=== PATIENT | male | born 1945 | race American Indian/Alaskan Native ===

== ENCOUNTER → 2021-03-08 | Outpatient (CLI) | payer MEDICARE ==
[~2021-03-08] MED LIST: OMEP20ER PO; PHENA100 PO; SULTRIDS PO; TAMS.4ER PO
[2021-03-08 12:06] LABS: Appearance, Urine Clear (Clear); Bilirubin, Urine Neg (Neg); Blood, Urine 2+ (Neg); Color, Urine Yellow (P-Yellow); Glucose Qualitative, Urine 3+ (Neg); Ketones, Urine Neg (Neg); Leukocyte Esterase, Urine Neg (Neg); Nitrite, Urine Neg (Neg); Protein, Urine 3+ (Neg); Specific Gravity, Urine 1.015 (1.003-1.022); Urobilinogen, Urine NORM (Normal)
[2021-03-08 12:37] LABS: Red Blood Cells, Urine 0-2 /hpf (0-2); Squamous Epithelial Cells Few /hpf (Few); White Blood Cells, Urine 0-2 /hpf (0-5)
[2021-03-08 12:38] LABS: Bacteria Rare /hpf
== END | disposition home or self-care (01) ==
LOC: LAB SHORT 11:29
PROVIDERS: Surgery
DX: Z51.0 Encounter for antineoplastic radiation therapy (principal); C61 Malignant neoplasm of prostate
CPT/HCPCS: 81001

== ENCOUNTER → 2022-04-12 | Outpatient (CLI) | payer MEDICARE ==
[2022-04-12 09:40] LABS: Source, Urine Clean Catch
[2022-04-12 14:20] LABS: Bacteria Few /hpf; Red Blood Cells, Urine 0-2 /hpf (0-2); Squamous Epithelial Cells Rare /hpf (Few)
== END | disposition home or self-care (01) ==
LOC: LAB 08:00 → LAB SHORT 08:00
PROVIDERS: Urology
DX: N39.0 Urinary tract infection, site not specified (principal)
CPT/HCPCS: 81015; 87086

== ENCOUNTER → 2022-08-14 | Outpatient (CLI) | payer MEDICARE ==
[2022-08-14 10:52] LABS: Appearance, Urine Clear (Clear); Bilirubin, Urine Neg (Neg); Blood, Urine 2+ (Neg); Color, Urine Yellow (P-Yellow); Glucose Qualitative, Urine 1+ (Neg); Ketones, Urine Neg (Neg); Leukocyte Esterase, Urine Neg (Neg); Nitrite, Urine Neg (Neg); Protein, Urine 3+ (Neg); Urobilinogen, Urine NORM (Normal); pH, Urine 6.5 (5.0-8.0)
[2022-08-14 11:12] LABS: Bacteria Rare /hpf; Mucus Mod (0-Heavy); Squamous Epithelial Cells Rare /hpf (Few); White Blood Cells, Urine 0-2 /hpf (0-5)
== END | disposition home or self-care (01) ==
LOC: LAB 10:41 → LAB SHORT 10:41
PROVIDERS: Nurse Practitioner Family
DX: Z51.0 Encounter for antineoplastic radiation therapy (principal); C61 Malignant neoplasm of prostate
CPT/HCPCS: 81001

== ENCOUNTER 2023-04-25 19:05 | Emergency (ER) | payer MEDICARE ==
[~2023-04-25] VITALS: Ht 180.3 cm; Wt 97.5 kg
[2023-04-25] MEDS ORDERED: BENZ100A PO (20:58)
[2023-04-25 21:00] VITALS: BP 158/76
[2023-04-26] MEDS ORDERED: Tessalon200 MG PO (10:26)
== END 2023-04-25 21:00 | disposition home or self-care (01) ==
LOC: ER 19:05
DX: U07.1 COVID-19 (principal); J44.9 Chronic obstructive pulmonary disease, unspecified; Z79.2 Long term (current) use of antibiotics; Z79.899 Other long term (current) drug therapy
CPT/HCPCS: 71045; 99284-25; A9270

== ENCOUNTER 2023-05-07 16:36 | Inpatient (IN) | payer MEDICARE ==
[~2023-05-07] VITALS: Ht 177.8 cm; Wt 92.5 kg
[~2023-05-07 16:36] MED LIST changes: +BENZ100A PO; +Tessalon200 MG PO
[2023-05-07 17:09] LABS: BASOPHILS ABSOLUTE AUTO 0.05 K/mm3 (0.00-0.23); BASOPHILS PERCENT AUTO 1 % (0-2); EOSINOPHILS ABSOLUTE AUTO 0.17 K/mm3 (0.00-0.68); EOSINOPHILS PERCENT AUTO 2 % (0-6); Hematocrit 32.4 % (37.0-53.0); Hemoglobin 10.4 g/dL (13.5-17.5); IMMATURE GRAN ABSOLUTE AUTO 0.06 K/mm3 (0.00-0.10); IMMATURE GRAN PERCENT AUTO 1 % (0-1); LYMPHOCYTES ABSOLUTE AUTO 0.67 K/mm3 (0.84-5.20); LYMPHOCYTES PERCENT AUTO 8 % (21-46); MONOCYTES ABSOLUTE AUTO 0.66 K/mm3 (0.16-1.47); MONOCYTES PERCENT AUTO 8 % (4-13); Mean Corpuscular HGB 29.4 pg (26.0-34.0); Mean Corpuscular HGB Conc 32.1 g/dL (31.5-36.5); Mean Corpuscular Volume 92 fL (80-100); Mean Platelet Volume 9.3 fL (9.1-12.4); NEUTROPHILS ABSOLUTE AUTO 6.49 K/mm3 (1.96-9.15); NEUTROPHILS PERCENT AUTO 80 % (41-73); Platelet Count 281 K/mm3 (150-400); RDW Coefficient Variation 15.7 % (11.7-14.2); RDW Standard Deviation 51.8 fL (35.1-46.3); Red Blood Cell Count 3.54 M/mm3 (4.30-5.90)
[2023-05-07 17:31] LABS: Albumin, Blood 3.2 g/dL (3.4-5.0); Albumin/Globulin Ratio 0.8 (0.8-1.8); Bilirubin, Total 0.6 mg/dL (0.1-1.0); Bun/Creatinine Ratio 17.3 (12.0-20.0); Calcium, Blood 9.5 mg/dL (8.5-10.1); Creatinine, Blood 1.27 mg/dL (0.60-1.20); Globulin, Blood 3.8 g/dL (2.2-4.0); Potassium, Blood 3.7 mmol/L (3.5-5.5)
[2023-05-07] MEDS ORDERED: OLME20 PO (18:47)
[2023-05-07] MEDS ORDERED: GLIP5ER PO (18:47)
[2023-05-07] MEDS ORDERED: ROSU10TA PO (18:48)
[2023-05-07] MEDS ORDERED: PIOG15 PO (18:48)
--- NOTE | 2023-05-07 22:10 | NUR ---
NEW ADMIT. PATIENT ARRIVED TO ROOM 334 FROM THE ER VIA GURNEY. PATIENT SELF TRANSFERED TO HOSPITAL BED. PATIENT ARRIVED ON 4 L'S OXYGEN VIA NASAL CANNULA. PATIENT TO ROOM WITH INSULIN PEN-LOCKED IN DRAWER FOR PATIENTS ROOM 334.
[2023-05-07 22:17] VITALS: BP 191/72
[2023-05-08] VITALS (9 sets, daily range): BP systolic 144–206; BP diastolic 57–93
--- NOTE | 2023-05-08 00:43 | NUR ---
HOSPITALIST CONTACTED. HOSPITALIST CONTACTED FOR PATIENTS B/P OF 206/93 PULSE OF 91. DISCUSSED WITH THAT PATIENT HAS LABETOLOL 10MG Q4H FOR SBP >180 AND THE NEXT DOSE IS NOT DUE FOR ANOTHER HOUR. ORDERED FOR NORVASC 10MG NOW AND 10MG IV HYDRALAZINE Q4P FOR SBP >160.
[2023-05-08 05:50] LABS: Calcium, Blood 9.5 mg/dL (8.5-10.1); Creatinine, Blood 1.13 mg/dL (0.60-1.20); Potassium, Blood 3.9 mmol/L (3.5-5.5)
--- NOTE | 2023-05-08 06:08 | NUR ---
SHIFT SUMMARY. PATIENT IS AOX4. PATIENT IN WITH ACUTE RESPIRATORY FAILURE. PATIENT SATTING >93% ON 4 L'S O2 VIA NASAL CANNULA. PATIENTS DAILY WEIGHT DONE-101.1KG. PATIENT CALLS APPROPRIATELY AND IS ABLE TO MAKE HIS NEEDS KNOWN. PATIENTS BREATHING HAS IMPROVED SINCE COMING INTO THE ER-PATIENT IS ABLE TO HOLD CONVERSATION W/O SOB, PATIENT TO THE BATHROOM TO BRUSH TEETH W/O SOB ON O2. PATIENT IS AC BLOOD GLUCOSE. PATIENT HAS NO C/O CHEST PAIN/PRESSURE/TIGHTNESS. PATIENTS DENIES ANY PAIN. PATIENTS B/P HAS BEEN ELEVATED THIS SHIFT-MEDICATED PER EMAR AND PERAMETERS; SEE ORDERS/EMAR AND VITAL SIGNS. BED IS LOCKED IN THE LOWEST POSITION W/CALL LIGHT IN REACH.
--- NOTE | 2023-05-08 19:24 | NUR ---
SHIFT SUMMARY PATIENT ALERT AND INTERACTIVE. PATIENT INDEPENDENT IN THE ROOM. USING URINAL TO VOID SMALL AMOUNTS AT A TIME. PATIENT STATES BREATHING CONTINUES TO BE ABOUT THE SAME YESTERDAY. PATIENT HAS BILATERAL LOWER LEG EDEMA. PATIENT STATES THAT THIS IS NEW FOR HIM SINCE HE HAD COVID. PATIENT RECIEVED MULTIPLE DOSES OF LASIX WITH MINIMAL RESPONSE. PROVIDER NOTIFIED OF FINDINGS. ORDERS GIVEN FOR IV LASIX GTT. EDUCATION PROVIDED TO AND PATIENT RELATED TO SODIUM DIET, FLUID INTAKE AND DAILY WEIGHING. 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
[2023-05-09 04:27] VITALS: BP 134/62
[2023-05-09 05:42] LABS: BASOPHILS ABSOLUTE AUTO 0.04 K/mm3 (0.00-0.23); BASOPHILS PERCENT AUTO 0 % (0-2); EOSINOPHILS ABSOLUTE AUTO 0.15 K/mm3 (0.00-0.68); EOSINOPHILS PERCENT AUTO 2 % (0-6); Hematocrit 30.2 % (37.0-53.0); Hemoglobin 9.8 g/dL (13.5-17.5); IMMATURE GRAN ABSOLUTE AUTO 0.04 K/mm3 (0.00-0.10); IMMATURE GRAN PERCENT AUTO 0 % (0-1); LYMPHOCYTES ABSOLUTE AUTO 1.11 K/mm3 (0.84-5.20); LYMPHOCYTES PERCENT AUTO 12 % (21-46); MONOCYTES ABSOLUTE AUTO 0.93 K/mm3 (0.16-1.47); MONOCYTES PERCENT AUTO 10 % (4-13); Mean Corpuscular HGB 29.6 pg (26.0-34.0); Mean Corpuscular HGB Conc 32.5 g/dL (31.5-36.5); Mean Corpuscular Volume 91 fL (80-100); Mean Platelet Volume 9.9 fL (9.1-12.4); NEUTROPHILS ABSOLUTE AUTO 6.79 K/mm3 (1.96-9.15); NEUTROPHILS PERCENT AUTO 75 % (41-73); Platelet Count 257 K/mm3 (150-400); RDW Standard Deviation 52.7 fL (35.1-46.3); Red Blood Cell Count 3.31 M/mm3 (4.30-5.90); White Blood Cell Count 9.06 K/mm3 (4.00-11.30)
[2023-05-09 06:02] LABS: Bun/Creatinine Ratio 24.3 (12.0-20.0); Calcium, Blood 9.3 mg/dL (8.5-10.1); Creatinine, Blood 1.52 mg/dL (0.60-1.20); Potassium, Blood 4.3 mmol/L (3.5-5.5)
--- NOTE | 2023-05-09 06:06 | NUR ---
END OF SHIFT SUMMARY PT SLEPT WELL OVERNIGHT. VSS, AFEBRILE, PT ON 4L VIA NC. PT HAD SOME SOB WITH EXERTION, AND SCOOTING UP IN BED. PT CALM AND COOPERATIVE WITH CARE PROVIDED. FREQUENT SAFETY CHECKS COMPLETED DURING THE SHIFT. PT APPEARED TO BE BREATHING EASILY. PT INDEPENDENT WITH ADL's, USES URINAL AT BEDSIDE. PT CALLS APPROPRIATELY. PT ABLE TO MAKE NEEDS KNOWN, CALL LIGHT WITHIN REACH, WCTM.
[2023-05-09 08:04] VITALS: BP 156/60
[2023-05-09 15:47] VITALS: BP 159/59
[2023-05-09 16:30] LABS: Bun/Creatinine Ratio 22.8 (12.0-20.0); Calcium, Blood 9.5 mg/dL (8.5-10.1); Creatinine, Blood 1.67 mg/dL (0.60-1.20); Potassium, Blood 4.3 mmol/L (3.5-5.5)
--- NOTE | 2023-05-09 18:36 | NUR ---
SHIFT SUMMARY PATIENT ALERT AND ORIENTED. PATIENT INDEPENDENT IN THE ROOM. PATIENT CONTINUES TO HAVE SOB BUT STATES THAT IT HAS IMPROVED TODAY. PATIENT CONTINUES TO BE ON OXYGEN. SOB INCREASES WITH ACTIVITY. EDEMA IMPROVED THROUGHOUT SHIFT. STEVE HOSE APPLIED. DIURETICS CHANGED. PATIENT VOIDING MORE AND URINE COLOR PALE YELLOW. CONTINUE TO PROVIDE EDUCATION RELATED TO NEW DIAGNOSIS OF CHF AND FLUID RETENTION.
[2023-05-09 20:00] VITALS: BP 186/63
--- NOTE | 2023-05-10 04:07 | NUR ---
END OF SHIFT SUMMARY PT A&O x4, VSS, AFEBRILE, PT ON 4L VIA NC. PT CALM AND COOPERATIVE WITH CARE PROVIDED. PT SLEPT WELL THROUGHOUT THE NIGHT, NO EVENTS TO CHART. PT STATED THAT HE IS FEELING BETTER THAN ON FRIDAY EVENING. PT VOIDING WELL, SEVERAL TIMES DURING THIS SHIFT. URINE PALE/TRANSPARENT IN COLOR. PT INDEPENDENT IN ROOM WITH ADL's, ABLE TO MAKE NEEDS KNOWN. PT DENIED C/O PAIN/DISCOMFORT, NO C/O CHEST PAIN, SOME SOB WITH ACTIVITY. CALL LIGHT WITHIN REACH, WCTM.
[2023-05-10 04:57] VITALS: BP 177/66
[2023-05-10 04:59] VITALS: BP 176/56
[2023-05-10 05:06] LABS: BASOPHILS ABSOLUTE AUTO 0.03 K/mm3 (0.00-0.23); BASOPHILS PERCENT AUTO 0 % (0-2); EOSINOPHILS ABSOLUTE AUTO 0.29 K/mm3 (0.00-0.68); EOSINOPHILS PERCENT AUTO 4 % (0-6); Hematocrit 30.5 % (37.0-53.0); Hemoglobin 10.1 g/dL (13.5-17.5); IMMATURE GRAN ABSOLUTE AUTO 0.03 K/mm3 (0.00-0.10); IMMATURE GRAN PERCENT AUTO 0 % (0-1); LYMPHOCYTES PERCENT AUTO 11 % (21-46); MONOCYTES ABSOLUTE AUTO 0.92 K/mm3 (0.16-1.47); MONOCYTES PERCENT AUTO 12 % (4-13); Mean Corpuscular HGB 29.6 pg (26.0-34.0); Mean Corpuscular HGB Conc 33.1 g/dL (31.5-36.5); Mean Corpuscular Volume 89 fL (80-100); Mean Platelet Volume 9.5 fL (9.1-12.4); NEUTROPHILS ABSOLUTE AUTO 5.41 K/mm3 (1.96-9.15); NEUTROPHILS PERCENT AUTO 72 % (41-73); Platelet Count 227 K/mm3 (150-400); RDW Coefficient Variation 15.5 % (11.7-14.2); RDW Standard Deviation 50.3 fL (35.1-46.3); Red Blood Cell Count 3.41 M/mm3 (4.30-5.90); White Blood Cell Count 7.48 K/mm3 (4.00-11.30)
[2023-05-10 05:39] LABS: Albumin, Blood 2.8 g/dL (3.4-5.0); Albumin/Globulin Ratio 0.8 (0.8-1.8); Bilirubin, Total 0.5 mg/dL (0.1-1.0); Bun/Creatinine Ratio 23.6 (12.0-20.0); Calcium, Blood 9.7 mg/dL (8.5-10.1); Creatinine, Blood 1.61 mg/dL (0.60-1.20); Globulin, Blood 3.6 g/dL (2.2-4.0); Potassium, Blood 3.9 mmol/L (3.5-5.5); Total Protein, Blood 6.4 g/dL (6.4-8.2)
--- NOTE | 2023-05-10 07:35 | NUR ---
ASSUMED CARE: PT RESTING QUIETLY. NSR ON TELE. 4L O2 AT THIS TIME. NO ACUTE NEEDS OR CONCERNS.
[2023-05-10 07:47] VITALS: BP 189/65
--- NOTE | 2023-05-10 07:56 | NUR ---
PHYSICAL THERAPIST AT BEDSIDE
[2023-05-10 14:51] VITALS: BP 145/57
[2023-05-10 15:45] VITALS: BP 154/61
--- NOTE | 2023-05-10 18:20 | NUR ---
SHIFT SUMMARY: PT RECIEVED IV DIURETICS AND ORAL POTASSIUM TODAY. REMAINS ON 4L O2 VIA NC, SATTING MID 90S. POSSIBLE DC HOME TOMORROW. DENIES ACUTE NEEDS OR CONCERNS.
[2023-05-10 19:48] VITALS: BP 144/62
[2023-05-11 03:58] VITALS: BP 161/64
--- NOTE | 2023-05-11 05:09 | NUR ---
END OF SHIFT SUMMARY PT SLEPT ON AND OFF OVERNIGHT, NO EVENTS NOTED. PT BREATHING EASILY, DENIED SOB, NO CHEST PAIN. PT PLEASANT AND COOPERATIVE WITH CARE PROVIDED. PT STILL ON 4L VIA NC, OXYGEN SATURATION AT 96%. PT VOIDING USING URINAL, PALE YELLOW CLEAR IN COLOR. SWELLING TO LOWER EXTREMITIES IMPROVING, PT WORE STEVE HOSE OVERNIGHT. PT RECEIVING IV BUMEX BIDD. LUNG SOUNDS CTA, DIMINISHED AT BASES. PT A&O x4, ABLE TO MAKE NEEDS KNOWN, CALL LIGHT WITHIN REACH, WCTM.
[2023-05-11 06:38] LABS: Bun/Creatinine Ratio 25.2 (12.0-20.0); Calcium, Blood 10.4 mg/dL (8.5-10.1); Creatinine, Blood 1.63 mg/dL (0.60-1.20); Potassium, Blood 4.3 mmol/L (3.5-5.5)
[2023-05-11 07:18] VITALS: BP 159/62
[2023-05-11] MEDS ORDERED: METO50ER PO (13:20)
[2023-05-11] MEDS ORDERED: SPIR25 PO (13:21)
[2023-05-11] MEDS ORDERED: TAMS.4ER PO (13:21)
[2023-05-11] MEDS ORDERED: BUME2 PO (13:22)
[2023-05-11 14:58] VITALS: BP 120/55
--- NOTE | 2023-05-11 16:15 | NUR ---
PATIENT DISCHARGED TO HOME ACCOMPANIED BY HIS . TELEMETRY AND IV SALINE LOCK REMOVED WITHOUT INCIDENT. EDUCATED PT AND EXTENSIVELY ABOUT HEART FAILURE, PREVENTION, MEDICATIONS, DAILY WEIGHTS, HOME OXYGEN SAFETY, SXS OF EXACERBATION; BOTH VERBALIZED UNDERSTANDING. NEW MEDICATIONS FAXED TO [facility]. OFF UNIT VIA W/C AT 4029. NO PERSONAL BELONGINGS LEFT BEHIND IN ROOM.
== END 2023-05-11 15:56 | disposition home or self-care (01) | DRG 291 ==
LOC: ER 16:36 → MEDS 20:52 → ENPENDDIS 05-11 11:51 → MEDS 05-11 15:56
PROVIDERS: Family Medicine; Hospitalist; Nurse Practitioner Acute Care; Student in an Organized Health Care Education/Training Program; ADMIT Internal Medicine
DX: I13.0 Hypertensive heart and chronic kidney disease with heart failure and stage 1 through stage 4 chronic kidney disease, or unspecified chronic kidney disease (principal); I50.33 Acute on chronic diastolic (congestive) heart failure; J96.01 Acute respiratory failure with hypoxia; E87.3 Alkalosis; E78.5 Hyperlipidemia, unspecified; I25.10 Atherosclerotic heart disease of native coronary artery without angina pectoris; J44.9 Chronic obstructive pulmonary disease, unspecified; N18.30 Chronic kidney disease, stage 3 unspecified; E11.22 Type 2 diabetes mellitus with diabetic chronic kidney disease; N40.0 Benign prostatic hyperplasia without lower urinary tract symptoms; K21.9 Gastro-esophageal reflux disease without esophagitis; Z86.16 Personal history of COVID-19; Z79.899 Other long term (current) drug therapy
CPT/HCPCS: 36415; 71046; 80048; 80053; 82947; 83735; 83880; 84100; 84145; 84484; 85025; 85379; 85651; 86140; 93005; 93010; 93306; 94760; 94761; 96374; 96375; 97110; 97116; 97161; 99285-25; A9270; J0360; J1100; J1650; J1940

== ENCOUNTER 2025-02-06 03:21 | Inpatient (IN) | payer MEDICARE ==
[2025-02-06] VITALS (13 sets, daily range): BP systolic 143–194; BP diastolic 50–79
[~2025-02-06] VITALS: Ht 180.3 cm; Wt 96.3 kg
[~2025-02-06 03:21] MED LIST changes: +BUME2 PO; +GLIP5ER PO; +METO25ER PO; +OLME20 PO; +PIOG15 PO; +ROSUVASTATIN CA10 MG PO; +SPIR25 PO
[2025-02-06 03:46] LABS: BASOPHILS ABSOLUTE AUTO 0.04 K/mm3 (0.00-0.23); BASOPHILS PERCENT AUTO 0 % (0-2); EOSINOPHILS ABSOLUTE AUTO 0.14 K/mm3 (0.00-0.68); EOSINOPHILS PERCENT AUTO 2 % (0-6); Hematocrit 29.6 % (37.0-53.0); Hemoglobin 9.1 g/dL (13.5-17.5); IMMATURE GRAN ABSOLUTE AUTO 0.04 K/mm3 (0.00-0.10); IMMATURE GRAN PERCENT AUTO 0 % (0-1); LYMPHOCYTES ABSOLUTE AUTO 0.99 K/mm3 (0.84-5.20); LYMPHOCYTES PERCENT AUTO 11 % (21-46); MONOCYTES ABSOLUTE AUTO 0.90 K/mm3 (0.16-1.47); MONOCYTES PERCENT AUTO 10 % (4-13); Mean Corpuscular HGB Conc 30.7 g/dL (31.5-36.5); Mean Corpuscular Volume 91 fL (80-100); NEUTROPHILS ABSOLUTE AUTO 6.96 K/mm3 (1.96-9.15); NEUTROPHILS PERCENT AUTO 77 % (41-73); NRBC ABSOLUTE 0.00 K/mm3 (0.00-0.02); NRBC Auto 0.0 /100 WBC (0.0-0.2); Platelet Count 253 K/mm3 (150-400); RDW Coefficient Variation 15.5 % (11.7-14.2); RDW Standard Deviation 51.8 fL (35.1-46.3)
[2025-02-06 04:05] LABS: Alanine Aminotransfer (ALT/SGP 23.0 U/L (12-78); Albumin, Blood 2.8 g/dL (3.4-5.0); Albumin/Globulin Ratio 0.7 (0.8-1.8); Anion Gap 9.0 mmol/L (3-11); Aspartate Aminotrans (AST/SGOT 20.0 U/L (12-37); Bilirubin, Total 0.6 mg/dL (0.1-1.0); Blood Urea Nitrogen 20.0 mg/dL (8-24); CO2, Blood 24.0 mmol/L (21-32); Calcium, Blood 9.0 mg/dL (8.5-10.1); Chloride, Blood 108.0 mmol/L (98-108); Creatinine, Blood 1.6 mg/dL (0.60-1.20); Globulin, Blood 4.1 g/dL (2.2-4.0); Glucose, Blood 184.0 mg/dL (70-99); Potassium, Blood 3.7 mmol/L (3.5-5.5); Sodium, Blood 137.0 mmol/L (136-145); Total Protein, Blood 6.9 g/dL (6.4-8.2)
[2025-02-06 04:24] LABS: Influenza A, PCR NEGATIVE (NEGATIVE); Influenza B, PCR NEGATIVE (NEGATIVE); Resp Syncytial Virus, PCR NEGATIVE (NEGATIVE); SARS-Cov-2 (COVID-19) PCR, MMC NEGATIVE (NEGATIVE)
[2025-02-06] MEDS ORDERED: POLYMYXIN B-TMP10 ML RIGHTEYE (04:46)
[2025-02-06] MEDS ORDERED: PRED AC-MOXI-NEP5 M1 RIGHTEYE (04:49)
[2025-02-06] MEDS ORDERED: GLIP5 PO (04:49)
[2025-02-06] MEDS ORDERED: FLU VACC TS2025(65UP)/MF59C/PF 45 MCG/0.5 ML SYRINGE IM SCH (05:00)
[2025-02-06] MEDS ORDERED: Ipratropium/Albuterol SulF 2.5-0.5MG/3 ML Amp INH SCH (05:45)
[2025-02-06] MEDS ORDERED: Insulin Human Lispro 100 Units/ML 3ML Syringe SC SCH (07:30)
[2025-02-06 08:06] LABS: Ferritin, Serum 657.0 ng/mL (26-388); Total Iron Binding Capacity 228.0 ug/dL (250-450)
[2025-02-06] MEDS ORDERED: Enoxaparin 40 MG/0.4 ML SYR SC SCH (09:00)
[2025-02-06] MEDS ORDERED: HydrALAZINE HCl 20 MG / ML 1ML Vial IV PRN (09:15)
[2025-02-06] MEDS ORDERED: Labetalol HCL 5 MG/ML 4ML Injection (Single Dose) IV PRN (10:40)
[2025-02-06] MEDS ORDERED: CefTRIAXone Sodium 1,000 MG in NS 100 ML IV SCH (13:00)
[2025-02-06] MEDS ORDERED: Albuterol 2.5 MG/3 ML VIAL INH PRN (13:55)
[2025-02-06] MEDS ORDERED: NS 250 ML IV PRN (14:05)
[2025-02-06 16:35] LABS: D-Dimer, Quantitative 9.74 mg/L FEU (0.00-0.52); Prothrombin Time Results 11.4 Sec (9.7-11.5)
[2025-02-06] MEDS ORDERED: Heparin Sodium,Porcine/0.5 NS 500 ML IV SCH (16:40)
[2025-02-07] VITALS (7 sets, daily range): BP systolic 133–176; BP diastolic 53–71
[2025-02-07] MEDS ORDERED: Dose Adjust by Pharmacy XX STA ×3 (00:45→14:38)
[2025-02-07 04:19] LABS: BASOPHILS ABSOLUTE AUTO 0.04 K/mm3 (0.00-0.23); BASOPHILS PERCENT AUTO 1 % (0-2); EOSINOPHILS ABSOLUTE AUTO 0.20 K/mm3 (0.00-0.68); EOSINOPHILS PERCENT AUTO 3 % (0-6); Hematocrit 26.4 % (37.0-53.0); Hemoglobin 8.6 g/dL (13.5-17.5); IMMATURE GRAN ABSOLUTE AUTO 0.05 K/mm3 (0.00-0.10); IMMATURE GRAN PERCENT AUTO 1 % (0-1); LYMPHOCYTES ABSOLUTE AUTO 1.00 K/mm3 (0.84-5.20); LYMPHOCYTES PERCENT AUTO 14 % (21-46); MONOCYTES ABSOLUTE AUTO 0.83 K/mm3 (0.16-1.47); MONOCYTES PERCENT AUTO 11 % (4-13); Mean Corpuscular HGB Conc 32.6 g/dL (31.5-36.5); Mean Corpuscular Volume 88 fL (80-100); NEUTROPHILS ABSOLUTE AUTO 5.27 K/mm3 (1.96-9.15); NEUTROPHILS PERCENT AUTO 71 % (41-73); NRBC ABSOLUTE 0.00 K/mm3 (0.00-0.02); NRBC Auto 0.0 /100 WBC (0.0-0.2); Platelet Count 252 K/mm3 (150-400); RDW Coefficient Variation 16.0 % (11.7-14.2); RDW Standard Deviation 51.3 fL (35.1-46.3)
[2025-02-07 04:55] LABS: Anion Gap 9.0 mmol/L (3-11); Blood Urea Nitrogen 24.0 mg/dL (8-24); CO2, Blood 28.0 mmol/L (21-32); Calcium, Blood 9.2 mg/dL (8.5-10.1); Chloride, Blood 105.0 mmol/L (98-108); Creatinine, Blood 1.98 mg/dL (0.60-1.20); Glucose, Blood 117.0 mg/dL (70-99); Magnesium, Blood 2.1 mg/dL (1.6-2.4); Potassium, Blood 3.6 mmol/L (3.5-5.5); Sodium, Blood 138.0 mmol/L (136-145)
[2025-02-07 08:01] LABS: CHOL/HDL RATIO 2.8; Cholesterol 99 mg/dL (50-200); HDL Cholesterol 36 mg/dL (>39); LDL/HDL RATIO 1.1; Low Density Lipoprotein Chol 38 mg/dL (0-110); Triglycerides 123 mg/dL (30-160); Very Low Density Lipoprot Chol 24 mg/dL (6-32)
[2025-02-08 04:35] LABS: BASOPHILS ABSOLUTE AUTO 0.06 K/mm3 (0.00-0.23); BASOPHILS PERCENT AUTO 1 % (0-2); EOSINOPHILS ABSOLUTE AUTO 0.31 K/mm3 (0.00-0.68); EOSINOPHILS PERCENT AUTO 4 % (0-6); Hematocrit 27.8 % (37.0-53.0); Hemoglobin 8.9 g/dL (13.5-17.5); IMMATURE GRAN ABSOLUTE AUTO 0.04 K/mm3 (0.00-0.10); IMMATURE GRAN PERCENT AUTO 1 % (0-1); LYMPHOCYTES ABSOLUTE AUTO 1.02 K/mm3 (0.84-5.20); LYMPHOCYTES PERCENT AUTO 14 % (21-46); MONOCYTES ABSOLUTE AUTO 0.89 K/mm3 (0.16-1.47); MONOCYTES PERCENT AUTO 12 % (4-13); Mean Corpuscular HGB Conc 32.0 g/dL (31.5-36.5); Mean Corpuscular Volume 88 fL (80-100); NEUTROPHILS ABSOLUTE AUTO 4.83 K/mm3 (1.96-9.15); NEUTROPHILS PERCENT AUTO 68 % (41-73); NRBC ABSOLUTE 0.00 K/mm3 (0.00-0.02); NRBC Auto 0.0 /100 WBC (0.0-0.2); Platelet Count 270 K/mm3 (150-400); RDW Coefficient Variation 16.2 % (11.7-14.2); RDW Standard Deviation 51.3 fL (35.1-46.3)
[2025-02-08 04:50] VITALS: BP 147/65
[2025-02-08 05:19] LABS: Anion Gap 10.0 mmol/L (3-11); Blood Urea Nitrogen 30.0 mg/dL (8-24); CO2, Blood 28.0 mmol/L (21-32); Calcium, Blood 9.8 mg/dL (8.5-10.1); Chloride, Blood 100.0 mmol/L (98-108); Creatinine, Blood 2.68 mg/dL (0.60-1.20); Glucose, Blood 142.0 mg/dL (70-99); Magnesium, Blood 2.3 mg/dL (1.6-2.4); Potassium, Blood 3.3 mmol/L (3.5-5.5); Sodium, Blood 135.0 mmol/L (136-145)
[2025-02-08] MEDS ORDERED: Dose Adjust by Pharmacy XX STA (06:19)
[2025-02-08 07:42] VITALS: BP 152/71
[2025-02-08 11:22] VITALS: BP 149/56
[2025-02-08 15:46] VITALS: BP 157/68
[2025-02-08 19:03] VITALS: BP 126/46
[2025-02-08] MEDS ORDERED: Lactobacil 2-S.Thermo-Bifido 1 1 Cap PO SCH (21:00)
[2025-02-09] VITALS (8 sets, daily range): BP systolic 103–155; BP diastolic 57–85
[2025-02-09 04:06] LABS: Hematocrit 28.6 % (37.0-53.0); Hemoglobin 9.2 g/dL (13.5-17.5); Mean Corpuscular HGB Conc 32.2 g/dL (31.5-36.5); Mean Corpuscular Volume 89 fL (80-100); NRBC ABSOLUTE 0.00 K/mm3 (0.00-0.02); NRBC Auto 0.0 /100 WBC (0.0-0.2); Platelet Count 281 K/mm3 (150-400); RDW Coefficient Variation 16.0 % (11.7-14.2); RDW Standard Deviation 51.8 fL (35.1-46.3)
[2025-02-09 04:33] LABS: Anion Gap 10.0 mmol/L (3-11); Blood Urea Nitrogen 39.0 mg/dL (8-24); CO2, Blood 27.0 mmol/L (21-32); Calcium, Blood 9.8 mg/dL (8.5-10.1); Chloride, Blood 100.0 mmol/L (98-108); Creatinine, Blood 2.75 mg/dL (0.60-1.20); Glucose, Blood 144.0 mg/dL (70-99); Magnesium, Blood 2.3 mg/dL (1.6-2.4); Potassium, Blood 3.7 mmol/L (3.5-5.5); Sodium, Blood 133.0 mmol/L (136-145)
[2025-02-09] MEDS ORDERED: KETO.5OPSO BOTHEYES (11:28)
[2025-02-09] MEDS ORDERED: Heparin Sodium,Porcine 5,000 UNIT/0.5 ML SDV SC SCH (21:00)
[2025-02-10 00:59] LABS: Source, Urine Voided
[2025-02-10 01:02] LABS: Bilirubin, Urine Neg (Neg); Glucose Qualitative, Urine 4+ (Neg); Ketones, Urine Neg (Neg); Leukocyte Esterase, Urine Neg (Neg); Protein, Urine 3+ (Neg); Specific Gravity, Urine 1.010 (1.003-1.022); Urobilinogen, Urine NORM (Normal)
[2025-02-10 01:03] LABS: Color, Urine Yellow (P-Yellow)
[2025-02-10 01:08] LABS: Red Blood Cells, Urine 0-2 /hpf (0-2); White Blood Cells, Urine Not Seen /hpf (0-5)
[2025-02-10 03:10] VITALS: BP 142/59
[2025-02-10 04:27] LABS: Hematocrit 27.9 % (37.0-53.0); Hemoglobin 9.0 g/dL (13.5-17.5); Mean Corpuscular HGB Conc 32.3 g/dL (31.5-36.5); Mean Corpuscular Volume 88 fL (80-100); NRBC ABSOLUTE 0.00 K/mm3 (0.00-0.02); NRBC Auto 0.0 /100 WBC (0.0-0.2); Platelet Count 262 K/mm3 (150-400); RDW Coefficient Variation 15.9 % (11.7-14.2); RDW Standard Deviation 51.2 fL (35.1-46.3)
[2025-02-10 04:59] LABS: Albumin, Blood 2.7 g/dL (3.4-5.0); Anion Gap 8 mmol/L (3-11); Blood Urea Nitrogen 41 mg/dL (8-24); CO2, Blood 28 mmol/L (21-32); Calcium, Blood 9.3 mg/dL (8.5-10.1); Chloride, Blood 101 mmol/L (98-108); Creatinine, Blood 2.67 mg/dL (0.60-1.20); Glucose, Blood 133 mg/dL (70-99); Magnesium, Blood 2.4 mg/dL (1.6-2.4); Phosphorus, Blood 4.0 mg/dL (2.5-4.9); Potassium, Blood 3.6 mmol/L (3.5-5.5); Sodium, Blood 133 mmol/L (136-145)
[2025-02-10 08:23] VITALS: BP 149/60
[2025-02-10 09:21] VITALS: BP 138/54
[2025-02-10 11:32] VITALS: BP 143/54
[2025-02-10] MEDS ORDERED: AMLO5 PO (13:38)
[2025-02-10] MEDS ORDERED: ASPI81CH PO (13:39)
[2025-02-10] MEDS ORDERED: CLOP75 PO (13:39)
[2025-02-10] MEDS ORDERED: VISBIOME 112.51 EACH PO (13:41)
[2025-02-10] MEDS ORDERED: PANT40 PO (13:41)
[2025-02-10] MEDS ORDERED: AMOCLA875 PO (13:43)
[2025-02-10] MEDS ORDERED: JARDIANCE10 MG PO (14:56)
== END 2025-02-10 14:50 | disposition home or self-care (01) | DRG 280 ==
LOC: ER 03:21 → MEDS 04:28 → PCU 18:13
PROVIDERS: Emergency Medicine; Hospitalist; Internal Medicine; Internal Medicine Cardiovascular Disease; Internal Medicine Critical Care Medicine; Student in an Organized Health Care Education/Training Program; ADMIT Internal Medicine
DX: I13.0 Hypertensive heart and chronic kidney disease with heart failure and stage 1 through stage 4 chronic kidney disease, or unspecified chronic kidney disease (principal); I50.43 Acute on chronic combined systolic (congestive) and diastolic (congestive) heart failure; I21.4 Non-ST elevation (NSTEMI) myocardial infarction; J96.01 Acute respiratory failure with hypoxia; N17.9 Acute kidney failure, unspecified; E87.1 Hypo-osmolality and hyponatremia; E87.6 Hypokalemia; Z66 Do not resuscitate; J44.9 Chronic obstructive pulmonary disease, unspecified; I45.10 Unspecified right bundle-branch block; E11.22 Type 2 diabetes mellitus with diabetic chronic kidney disease; N18.32 Chronic kidney disease, stage 3b; N40.0 Benign prostatic hyperplasia without lower urinary tract symptoms; D63.1 Anemia in chronic kidney disease; E78.5 Hyperlipidemia, unspecified; Z79.52 Long term (current) use of systemic steroids; Z79.84 Long term (current) use of oral hypoglycemic drugs; Z79.899 Other long term (current) drug therapy
CPT/HCPCS: 36415; 71045; 71260; 76770; 78452; 80048; 80053; 80061; 80069; 81001; 82570; 82728; 82947; 83540; 83550; 83735; 83880; 84145; 84156; 84484; 85025; 85027; 85379; 85610; 85730; 87637; 93005; 93010; 93017; 93306; 94640; 94660; 94664; 94760; 94762; 99285-25; A9270; A9500; J0360; J0696; J0706; J1644; J1650; J1938; J2785; J7050; Q9967

== ENCOUNTER → 2025-03-15 | Outpatient (CLI) | payer MEDICARE ==
[~2025-03-15] MED LIST changes: +AMLO5 PO; +AMOCLA875 PO; +ASPI81CH PO; +CLOP75 PO; +GLIP5 PO; +JARDIANCE10 MG PO; +KETO.5OPSO BOTHEYES; +PANT40 PO; +POLYMYXIN B-TMP10 ML RIGHTEYE; +PRED AC-MOXI-NEP5 M1 RIGHTEYE; +VISBIOME 112.51 EACH PO
[2025-03-15 16:33] LABS: BASOPHILS ABSOLUTE AUTO 0.04 K/mm3 (0.00-0.23); BASOPHILS PERCENT AUTO 1 % (0-2); EOSINOPHILS ABSOLUTE AUTO 0.14 K/mm3 (0.00-0.68); EOSINOPHILS PERCENT AUTO 2 % (0-6); Hematocrit 32.5 % (37.0-53.0); Hemoglobin 10.4 g/dL (13.5-17.5); IMMATURE GRAN ABSOLUTE AUTO 0.03 K/mm3 (0.00-0.10); IMMATURE GRAN PERCENT AUTO 0 % (0-1); LYMPHOCYTES ABSOLUTE AUTO 0.87 K/mm3 (0.84-5.20); LYMPHOCYTES PERCENT AUTO 13 % (21-46); MONOCYTES ABSOLUTE AUTO 0.72 K/mm3 (0.16-1.47); MONOCYTES PERCENT AUTO 11 % (4-13); Mean Corpuscular HGB Conc 32.0 g/dL (31.5-36.5); Mean Corpuscular Volume 90 fL (80-100); NEUTROPHILS ABSOLUTE AUTO 4.98 K/mm3 (1.96-9.15); NEUTROPHILS PERCENT AUTO 74 % (41-73); NRBC ABSOLUTE 0.00 K/mm3 (0.00-0.02); NRBC Auto 0.0 /100 WBC (0.0-0.2); Platelet Count 289 K/mm3 (150-400); RDW Coefficient Variation 15.3 % (11.7-14.2); RDW Standard Deviation 50.8 fL (35.1-46.3)
== END ==
LOC: LAB SHORT 15:47 → LAB 15:47
PROVIDERS: Internal Medicine Hematology & Oncology
DX: E61.1 Iron deficiency (principal)
CPT/HCPCS: 85025